=== PATIENT | female | born 1975 | race Caucasian/White ===

== ENCOUNTER → 2023-08-20 11:03 | Outpatient (REF) | payer BC, SELFPAY | LOC: HWWDC 11:03 | PROVIDERS: ATTENDING PHYSICIAN Nurse Practitioner Adult Health | DX: Z12.31 Encounter for screening mammogram for malignant neoplasm of breast (principal) | CPT/HCPCS: 77063; 77067 ==

== ENCOUNTER → 2025-02-22 13:51 | Outpatient (REF) | payer BC, SELFPAY | LOC: HWRAD 13:51 | PROVIDERS: ATTENDING PHYSICIAN Otolaryngology Otolaryngology/Facial Plastic Surgery; FAMILY PHYSICIAN Nurse Practitioner Adult Health | DX: J32.1 Chronic frontal sinusitis (principal) | CPT/HCPCS: 70486 ==

== ENCOUNTER → 2025-03-29 13:33 | Outpatient (REF) | payer BC, SELFPAY | LOC: HWWDC 13:33 | PROVIDERS: ATTENDING PHYSICIAN Nurse Practitioner Adult Health | DX: Z12.31 Encounter for screening mammogram for malignant neoplasm of breast (principal) | CPT/HCPCS: 77063; 77067 ==

== ENCOUNTER → 2025-04-05 13:34 | Outpatient (REF) | payer BC, SELFPAY | LOC: DHSLP 13:34 | PROVIDERS: ATTENDING PHYSICIAN Internal Medicine Critical Care Medicine; FAMILY PHYSICIAN Otolaryngology Otolaryngology/Facial Plastic Surgery | DX: G47.33 Obstructive sleep apnea (adult) (pediatric) (principal); R06.83 Snoring | CPT/HCPCS: 95800 ==